=== PATIENT | female | born 1970 | race Caucasian/White ===

== ENCOUNTER 2016-12-14 11:34 | Emergency (ER) | payer OTHER ==
[~2016-12-14] VITALS: Ht 157.5 cm; Wt 56.7 kg
[~2016-12-14 11:34] MED LIST: -; EMERGEN-C PO; HYDRODIURIL 2525 MG PO; K-TAB20 MEQ PO; LEVOTHYROXINE0.1 MG PO; NASONEX0.05 MG/Ac NASB; ROBITUSSIN W/CO10 ML PO; ZITHROMAX Z-PA250 M1 PO
[2016-12-14 12:31] VITALS: BP 146/99
[2016-12-14] MEDS ORDERED: CYCLOBENZAPRINE5 M2 PO (12:40)
[2016-12-14] MEDS ORDERED: NAPROSYN500 M1 PO (12:40)
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
== END 2016-12-14 13:05 ==
LOC: ERH 11:34
DX: S16.1XXA Strain of muscle, fascia and tendon at neck level, initial encounter (principal); V89.2XXA Person injured in unspecified motor-vehicle accident, traffic, initial encounter
CPT/HCPCS: 96372